=== PATIENT | female | born 1950 | race Caucasian/White ===

== ENCOUNTER → 2021-06-07 | Outpatient (CLI) | payer MEDICARE, OTHER ==
--- NOTE | 2021-06-07 13:11 | Diagnostic Imaging Report ---
PROCEDURE: US Hepatic (Liver). TECHNIQUE: Multiple real-time grayscale images were obtained over the right upper quadrant in various projections. INDICATION: History of cholecystectomy. Patient has history of pancreatic pseudocyst as well as right upper quadrant pain with diarrhea, bloating, and elevated liver enzymes. FINDINGS: Liver is upper limits of normal in size at 17.6 cm. There is some increased echogenicity throughout the liver suggestive of hepatic steatosis. No discrete liver mass is identified. The portal vein is patent and shows normal direction of flow. Gallbladder is surgically absent. No biliary ductal dilatation is seen. Pancreas is poorly visualized due to bowel gas. Aorta in the proximal and mid aspect was nonvisualized. Distal aorta is normal in caliber. IVC is patent. Right kidney is without calculi or hydronephrosis. There is no ascites. IMPRESSION: 1. Probable hepatic steatosis. 2. Status post cholecystectomy. 3. No acute feature detected. Dictated by: Dictated on workstation # [id number]
== END ==
LOC: RAD 09:45
PROVIDERS: ATTEND Nurse Practitioner Family
DX: R94.5 Abnormal results of liver function studies (principal)
CPT/HCPCS: 76705

== ENCOUNTER → 2021-08-01 | Outpatient (CLI) | payer MEDICARE, OTHER | LOC: CARD 08:32 | PROVIDERS: ATTEND Internal Medicine Cardiovascular Disease | DX: I11.9 Hypertensive heart disease without heart failure (principal); Z95.5 Presence of coronary angioplasty implant and graft | CPT/HCPCS: 93306 ==

== ENCOUNTER → 2021-08-02 | Outpatient (CLI) | payer MEDICARE, OTHER ==
[~2021-08-02] VITALS: Ht 160 cm; Wt 60.0 kg
[~2021-08-02] MED LIST: CATHETER FLUSH 10 ML SYR IV PRN
[2021-08-02 09:32] VITALS: BP 197/88
--- NOTE | 2021-08-02 11:53 | Cardiology Stress Test Report ---
Stress Test Report Date of Procedure/Referring: Date of Procedure: Aug 02, 2021 PCP Vilma Verde MD Admitting Physician Indications: HTN Baseline Heart Rate: 63 Baseline Blood Pressure: Blood Pressure Systolic: 197 Blood Pressure Diastolic: 88 Vital Signs Date Time Temp Pulse Resp B/P (MAP) Pulse Ox O2 Delivery O2 Flow Rate FiO2 08/02/21 09:32 52 197/88 (124) 98 Baseline Vital Signs Vital Signs Date Time Temp Pulse Resp B/P (MAP) Pulse Ox O2 Delivery O2 Flow Rate FiO2 08/02/21 09:32 52 197/88 (124) 98 Baseline EKG: Baseline EKG: NSR Summary: After explaining the procedure and details to the patient, she signed the consent and was brought to the stress nuclear laboratory. Patient exercised on standard Trey protocol, EKG, heart rate and blood pressure were monitored continuously, resting and stress doses of radio tracer were injected, imaging was acquired and reviewed in the short axis, horizontal long axis and vertical long axis views Patient was able to exercise for a total of 6.30 minutes on Trey protocol, METs 7.9 Maximum heart rate 140 Maximum blood pressure 203/85 Stress EKG, Minimal nondiagnostic changes Recovery EKG, Return to baseline TID: 1.15 SSS: 4 SDS: 4 EF: 52 Conclusion: 1. Fair exercise tolerance for a total of 6 minutes and 30 seconds on standard Trey protocol achieving 93% of maximal expected heart rate 2. Severe hypertensive response to exercise with peak blood pressure 203/85 return to baseline during recovery 3. Nondiagnostic EKG changes with exercise with [address] depression in lead II, III and aVF that persisted during recovery with biphasic T wave changes 4. Mild reversible ischemia involving the basal to mid inferior wall 5. Normal left ventricular size, EF 52% VILMA VERDE MD Aug 02, 2021 11:53
== END ==
LOC: CARD 08:45
PROVIDERS: ATTEND Internal Medicine Cardiovascular Disease
DX: I10 Essential (primary) hypertension (principal)
CPT/HCPCS: 78452; 93017; A9502

== ENCOUNTER 2021-09-06 09:00 | Day surgery (SDC) | payer MEDICARE, OTHER ==
[2021-09-06] VITALS (23 sets, daily range): BP systolic 142–211; BP diastolic 69–111
[~2021-09-06] VITALS: Ht 160 cm; Wt 62.0 kg
[2021-09-06 07:37] LABS: BILIRUBIN,URINE NEGATIVE (NEGATIVE); CLARITY,URINE CLEAR; COLOR,URINE YELLOW; GLUCOSE, URINE (UA) NEGATIVE (NEGATIVE); KETONES,URINE NEGATIVE (NEGATIVE); LEUKOCYTE ESTERASE ,URINE 2+ (NEGATIVE); NITRITE,URINE NEGATIVE (NEGATIVE); PROTEIN,URINE TRACE (NEGATIVE)
[2021-09-06 07:42] LABS: HEMATOCRIT 42 % (35-52); HEMOGLOBIN 13.8 g/dL (11.5-16.0); MEAN CORPUSCULAR HEMOGLOBIN 30 pg (25-34); MEAN CORPUSCULAR HGB CONC 33 g/dL (32-36); MEAN CORPUSCULAR VOLUME 91 fL (80-99); MEAN PLATELET VOLUME 10.5 fL (9.0-12.2); PLATELET COUNT 268 10^3/uL (130-400); WHITE BLOOD COUNT 7.9 10^3/uL (4.3-11.0)
--- NOTE | 2021-09-06 07:45 | Diagnostic Imaging Report ---
EXAMINATION: Chest 1 view HISTORY: ab n stress cad htn hlp COMPARISON: None available. FINDINGS: Heart size and pulmonary vasculature are normal. The lungs are clear without consolidation, pleural effusion, or pneumothorax. The osseous structures are intact. IMPRESSION: 1. No acute radiographic abnormality in the chest. Dictated by: Dictated on workstation # [id number]
[2021-09-06 07:46] LABS: BACTERIA,URINE MODERATE /HPF; RENAL EPITHELIAL CELLS,URINE 0-2 /HPF; WBC,URINE 25-50 /HPF
[2021-09-06 07:47] LABS: PROTHROMBIN TIME PATIENT 13.2 SEC (12.2-14.7)
[2021-09-06 07:53] LABS: ALBUMIN 3.7 GM/DL (3.2-4.5); BILIRUBIN,TOTAL 0.6 MG/DL (0.1-1.0); CALCIUM 9.1 MG/DL (8.5-10.1); CREATININE SERUM 0.68 MG/DL (0.60-1.30); POTASSIUM 3.5 MMOL/L (3.6-5.0); TOTAL PROTEIN 6.8 GM/DL (6.4-8.2)
[~2021-09-06 09:00] MED LIST changes: +AMLO-251 PO; +ASPI-1238 PO; +BUDE3CAP5 PO; -CATHETER FLUSH 10 ML SYR IV PRN; +CETI10TA49 PO; +CHOL-11 PO; +CIPR500T5 PO; +CLC600T PO; +DICY10CA12 PO; +DIPH25CA79 PO; +FLUT9.9S NS; +HEParin (CATH LAB) 2,000 ML IV ONE; +IBUP-2473 PO; +LEVO200T6 PO; +LEVO25TA5 PO; +LIDOCAINE 1% INJ 20 ML VIAL ONE; +LIPA1CAP4 PO; +LOPE2TAB34 PO; +LOSA50TA63 PO; +MAGN400T39 PO; +MULT-1029 PO; +NS IV 1000 ML 1,000 ML IV SCH; +NS IV 1000 ML 1,000 ML ONE; +OMEP20CA18 PO; +RT-ALBUINH IH; +TICA90TA PO
[2021-09-06] MEDS ORDERED: VERAPAMIL 5 MG/2 ML (CALAN) VIAL IV ONE (09:41)
[2021-09-06] MEDS ORDERED: MIDAZOLAM 5 MG/5 ML (VERSED) VIAL ONE (09:41)
[2021-09-06] MEDS ORDERED: fentaNYL INJ 100 MCG/2 ML AMP ONE (09:41)
[2021-09-06] MEDS ORDERED: HEParin 1000 UNIT/ML (10ML VIAL) FOR BOLUS ONE (09:42)
[2021-09-06] MEDS ORDERED: NITRO DRIP 25000 MCG/D5W 250 ML IV ONE (09:42)
[2021-09-06] MEDS ORDERED: meTOprolol 5 MG/5 ML (LOPRESSOR) VIAL ONE (10:03)
[2021-09-06] MEDS ORDERED: TICAGRELOR 90 MG TABLET (BRILINTA) PO ONE (10:27)
[2021-09-06] MEDS ORDERED: ASPIRIN 325 MG (5 GR) TABLET ONE (10:27)
[2021-09-06] MEDS ORDERED: PATIENT MAY USE OWN MEDS, ALL PO SCH (10:45)
[2021-09-06] MEDS ORDERED: RT-ALBUTEROL SULF 2.5 MG/3 ML PRE-MIX VIAL IH PRN (10:45)
--- NOTE | 2021-09-06 10:49 | Cardiac Cath Report ---
Cardiac Cath Report Physician (s)/Flower Cheniller (s) Physician VILMA SMITH MD Pre-Procedure Diagnosis Pre-Procedure Diagnosis: CAD Post-Procedure Note Procedure Start Date: Sep 06, 2021 Name of Procedure: Left heart catheterization PCI to the right coronary artery using Cutting Balloon Findings/Procedure Note PROCEDURE NOTE: 71-year-old lady with history of coronary artery disease multiple intervention in the past, had an abnormal stress test, scheduled for cardiac catheterization possible PTCA. After explaining the procedure to the patient, all pros and cons were explained, all questions were answered. The patient signed the consent and then she was placed on the cardiac catheterization laboratory. Groin was prepped SL fashion local anesthesia was used. Sheath placed in the right radial artery, Freedom catheter was advanced with difficulty to the aortic cusp, I was unable to and manipulate the catheter due to the tortuosity in the brachiocephalic and s ubclavian arteries. I removed the catheter and decided to proceed with a groin access. Sheath was placed in the right femoral artery. Gladys right and left catheter were used to access the coronary system. Gladys right was prolapsed to the left ventricular cavity, pressure was measured, pullback LV to aorta was done. Patient was given a total of 6000 units of heparin, FIR guide with sideholes was advanced to the right coronary artery, advanced a BMW wire, 3 x 20 balloon was used, multiple inflation, the ostium of the right coronary artery has severe in- stent restenosis and I was unable to maintain a good position of the balloon due to the watermelon seed effect. I repositioned the guide and advanced the wire again and then I used a [place] 3 x 10 cutting balloon did multiple inflation to the ostium of the right coronary artery for in-stent restenosis then proceeded with balloon dilatation using a trek 3.5 x 30 with multiple inflation in the proximal mid and distal right coronary artery with excellent results. At the end of the procedure the sheath was removed. Closure device was deployed FINDINGS: Hemodynamics LV 159/13, end-diastolic pressure of 13 Aorta 154/75 mean of 109 ANATOMY: Left Main is free of obstructive disease Left Anterior Descending has patent stent with mild to moderate disease nonobstructive disease Left Circumflex has mild to moderate disease nonobstructive disease Right Coronary Artery is large dominant artery with multiple stents extending from the ostium to the distal portion of the right coronary artery with severe multiple segment stenosis including subtotal occlusion of the ostium, complex intervention with multiple balloon angioplasty then using Cutting Balloon with [place] 3 x 10 postdilatation with 3.5 x 30 mm balloon with excellent results LV Gram was not done, pressure was measured CONCLUSION: 1. Severe multisegment stenosis in the ostium, proximal, mid and distal in- stent restenosis in the right coronary artery, complex intervention with Cutting Balloon using [place] 3 x 10 and then postdilatation with trek 3.5 x 30 mm balloon with multiple inflations with excellent results 2. Patent stents in the LAD with mild to moderate disease nonobstructive disease 3. Mild to moderate disease in the circumflex artery 4. Normal left ventricular end-diastolic pressure DISCUSSION AND RECOMMENDATION: Continue on aspirin and Brilinta and continue to maximize medical Anesthesia Type: Conscious Sedation Estimated blood loss (mL): 30 ml Contrast Amount: 70 ml Total Radiation Dose: 500 mGy Post-Procedure Diagnosis Post-operative diagnosis: Chest pain Coronary artery disease Hypertension Hyperlipidemia VILMA SMITH MD Sep 06, 2021 10:49
[2021-09-06] MEDS ORDERED: DICYCLOMINE 10 MG (BENTYL) CAP PO SCH (12:00)
--- NOTE | 2021-09-06 12:12 | Conscious Sedation/ASA ---
Conscious Sedation Pre-Proced Time 12:11 ASA Score 3 For ASA 3 and 4: Consider anesthesia and medical clearance. Also, for patients with a history of failed moderate sedation consider anesthesia. Airway Lungs Heart ASA score ASA 1: a normal healthy patient ASA 2: a patient with a mild systemic disease (mid diabetes, controlled hypertension, obesity x ASA 3: a patient with a severe systemic disease that limits activity (angina, COPD, prior Myocardial infarction) ASA 4: a patient with an incapacitating disease that is a constant threat to life (CHF, renal failure) ASA 5: a moribund patient not expected to survive 24 hrs. (ruptured aneurysm) ASA 6: a declared brain- patient whose organs are being harvested. For emergent operations, add the letter E after the classification Mallampati Classification Grade 3 Sedation Plan Analgesia, Amnesia, Plan communicated to team members, Discussed options with patient/fam, Discussed risks with patient/fam The patient is an appropriate candidate to undergo the planned procedure, sedation, and anesthesia. The patient immediately re-assessed prior to indication. VILMA SMITH MD Sep 06, 2021 12:12
[2021-09-06] MEDS: NS IV 1000 ML 1,000 ML IV SCH ×2 (12:47→21:49)
[2021-09-06] MEDS ORDERED: LOPERAMIDE 2 MG (IMODIUM) TABLET PO SCH (13:00)
[2021-09-06] MEDS ORDERED: ACETAMINOPHEN 325 MG TABLET PO PRN (14:00)
[2021-09-06] MEDS ORDERED: cloNIDine 0.1 MG (CATAPRES) TAB PO NR (15:00)
[2021-09-06] MEDS: DICYCLOMINE 10 MG (BENTYL) CAP PO SCH ×2 (17:35→20:10)
[2021-09-06] MEDS: TICAGRELOR 90 MG TABLET (BRILINTA) PO SCH (20:09)
[2021-09-06] MEDS: LOPERAMIDE 2 MG (IMODIUM) TABLET PO SCH (20:11)
[2021-09-06] MEDS ORDERED: LOSARTAN 50 MG (COZAAR) TAB PO SCH (21:00)
[2021-09-06] MEDS ORDERED: amLODIPine 10 MG (NORVASC) TAB ONE (22:37)
[2021-09-06] MEDS ORDERED: amLODIPine 10 MG (NORVASC) TAB PO ONE (22:45)
[2021-09-06] MEDS ORDERED: doxAzosin 4 MG (CARDURA) TAB PO PRN (22:45)
[2021-09-07] VITALS: BP 147/70
[2021-09-07 04:00] VITALS: BP 165/75
[2021-09-07 05:13] LABS: HEMATOCRIT 37 % (35-52); HEMOGLOBIN 12.3 g/dL (11.5-16.0); MEAN CORPUSCULAR HEMOGLOBIN 30 pg (25-34); MEAN CORPUSCULAR HGB CONC 34 g/dL (32-36); MEAN CORPUSCULAR VOLUME 89 fL (80-99); MEAN PLATELET VOLUME 10.7 fL (9.0-12.2); PLATELET COUNT 232 10^3/uL (130-400); WHITE BLOOD COUNT 6.9 10^3/uL (4.3-11.0)
--- NOTE | 2021-09-07 05:27 | Discharge Inst-Post CATH ---
Discharge Inst-CATH/EP Problems Reviewed?: Yes Post Cardiac Cath/EP D/C Inst Follow Up/Plan Appointment with Dr Verde in 2-4 weeks <b>CARDIAC CATH/EP PROCEDURE DISCHARGE INSTRUCTIONS</b> ACTIVITY * Go Home directly and rest. * Limit activity of the leg (or wrist if it was used) for 7 days including aerobics, swimming, jogging, bicycling, etc. * Restrict stair-climbing for 7 days if possible, if not, climb up with your non-cath leg, then bring together on the same step. * Avoid lifting, pushing, pulling or excessive movement of the affected extremity for 7 days. * Customary sexual activity may be resumed after 2 days-use caution not to use a position that strains or causes pain to the affected extremity. * No driving for 24 hours. * NO SMOKING. * Avoid straining for bowel movements for 7 days. * Gentle walking on level ground is allowed. * Returning to work will depend on the type of procedure and the results. Your doctor will discuss this with you. CALL YOUR DOCTOR FOR ANY OF THE FOLLOWING: *If bleeding from the puncture site occurs- Apply gentle pressure to site with clean cloth and call your doctor or EMS. * If a knot or lump forms under the skin, increases in size, or causes pain. * If bruising appears to be worsening or moving further down your leg instead of disappearing. * Temperature above 101 F. CARE OF YOUR GROIN INCISION; * Bruising or purple discoloration of the skin near the puncture site is common. * You may shower only, no bathtub bathing for 5 days. Be careful to avoid slipping as your leg may feel stiff. * If a closure device was used on your femoral artery, please see the attached guide regarding care of the device and your leg. * Leave dressing on FOR 24 hours. CARE OF YOUR WRIST INCISION; * Bruising or purple discoloration of the skin near the puncture site is common. * You may shower. * DO NOT submerge wrist. * Leave dressing on FOR 24 hours. VILMA VERDE MD Sep 07, 2021 05:27
[2021-09-07 05:30] LABS: POTASSIUM 3.4 MMOL/L (3.6-5.0)
[2021-09-07 05:31] LABS: CALCIUM 8.3 MG/DL (8.5-10.1)
[2021-09-07] MEDS: DICYCLOMINE 10 MG (BENTYL) CAP PO SCH (05:34)
[2021-09-07 05:35] LABS: CREATININE SERUM 0.61 MG/DL (0.60-1.30)
[2021-09-07] MEDS ORDERED: LEVOTHYROXINE 100 MCG (LEVOTHROID) TAB PO SCH (06:30)
[2021-09-07] MEDS ORDERED: LEVOTHYROXINE 25 MCG (LEVOTHROID) TAB PO SCH (06:30)
[2021-09-07] MEDS ORDERED: CARV3.12 PO (07:12)
[2021-09-07] MEDS ORDERED: LOSA100T57 PO (07:12)
--- NOTE | 2021-09-07 07:14 | Cardiology Progress Note ---
Subjective Date Seen by Provider: Sep 07, 2021 Time Seen by Provider: 07:10 Subjective/Events-last exam Patient is laying down in bed, feeling well. No new complaints. No chest pain was reported Review of Systems General: No Chills, No Night Sweats, No Fatigue, No Malaise, No Appetite, No Other HEENT: No Head Aches, No Visual Changes, No Eye Pain, No Ear Pain, No Dysphasia, No Sinus Congestion, No Post Nasal Drip, No Sore Throat, No Other Pulmonary: No Dyspnea, No Cough, No Pleuritic Chest Pain, No Other Cardiovascular: No: Chest Pain, Palpitations, Orthopnea, Paroxysmal Noc. Dyspnea, Edema, Lt Headedness, Other Objective-Cardiology Exam Last Set of Vital Signs Vital Signs 09/07/21 09/07/21 04:00 04:58 Temp 36.7 Pulse 66 Resp 16 B/P (MAP) 165/75 (105) Pulse Ox 93 O2 Delivery Room Air I&O Intake and Output 09/07/21 00:00 Intake Total 1200 ml Balance 1200 ml Intake Oral 200 ml IV Total 1000 ml # Voids 3 General: Alert, Oriented X3, Cooperative HEENT: Atraumatic, PERRLA Neck: Supple, No JVD, No Thyromegaly Lungs: Clear to Auscultation, Normal Air Movement Heart: Regular Rate, Normal S1, Normal S2, No Murmurs Abdomen: Normal Bowel Sounds, Soft, No Tenderness, No Hepatosplenomegaly, No Masses Extremities: No Clubbing, No Cyanosis, No Edema, Normal Pulses, No Tenderness/Swelling Skin: No Rashes, No Breakdown, No Significant Lesion Neuro: Normal Gait, Normal Speech, Strength at 5/5 X4 Ext, Normal Tone, Sensation Intact Psych/Mental Status: Mental Status NL, Mood NL Results Lab Laboratory Tests 09/06/21 07:26 09/07/21 04:55 A/P-Cardiology Admission Diagnosis Coronary artery disease Hypertension Hyperlipidemia Assessment/Plan Coronary artery disease, abnormal stress test, severe in-stent restenosis, complex intervention with Cutting Balloon then balloon angioplasty to the proximal mid and distal right coronary artery with excellent results. Cardiac cath findings: 1. Severe multisegment stenosis in the ostium, proximal, mid and distal in- stent restenosis in the right coronary artery, complex intervention with Cutting Balloon using [place] 3 x 10 and then postdilatation with trek 3.5 x 30 mm balloon with multiple inflations with excellent results 2. Patent stents in the LAD with mild to moderate disease nonobstructive disease 3. Mild to moderate disease in the circumflex artery 4. Normal left ventricular end-diastolic pressure Hypertension, poor control. I will increase losartan to 100 mg daily, add Coreg 3.125 mg twice daily and continue Norvasc 10 mg daily and monitor tolerance and response Hyperlipidemia, intolerant to statin, lipid profile is acceptable. Intolerance to Plavix VILMA SMITH MD Sep 07, 2021 07:14
[2021-09-07 08:00] VITALS: BP 159/85
[2021-09-07] MEDS: TICAGRELOR 90 MG TABLET (BRILINTA) PO SCH (08:35)
[2021-09-07] MEDS: LOPERAMIDE 2 MG (IMODIUM) TABLET PO SCH (08:37)
[2021-09-07] MEDS ORDERED: MAGNESIUM OXIDE (MAG-OX)400 MG TAB PO SCH (09:00)
[2021-09-07] MEDS ORDERED: ASPIRIN E.C. 81 MG (ECOTRIN) TAB PO SCH (09:00)
[2021-09-07] MEDS ORDERED: amLODIPine 10 MG (NORVASC) TAB PO SCH (09:00)
[2021-09-07] MEDS ORDERED: diphenhydrAMINE 25 MG TAB (BENADRYL) PO PRN (09:00)
[2021-09-07] MEDS ORDERED: BUDESONIDE ER 3 MG CAP (ENTOCORT) PO SCH (09:00)
[2021-09-07] MEDS ORDERED: FLUTICASONE NASAL SPRAY (FLONASE) 16 GM BTL NS PRN (09:00)
[2021-09-07] MEDS ORDERED: doxAzosin 2 MG (CARDURA) TAB PO SCH (09:00)
[2021-09-07] MEDS ORDERED: LORATADINE (CLARITIN) 10 MG TAB PO PRN (09:00)
[2021-09-07] MEDS ORDERED: PANTOPRAZOLE 20 MG TABLET (PROTONIX) PO SCH (09:00)
[2021-09-07] MEDS: NS IV 1000 ML 1,000 ML IV SCH (10:11)
[2021-09-07 10:36] VITALS: BP 159/85
== END 2021-09-07 10:40 | disposition home or self-care (01) ==
LOC: CATH 09:00 → CSD 11:03 → CATH 09-07 10:40
PROVIDERS: ATTEND Internal Medicine Cardiovascular Disease
DX: I25.10 Atherosclerotic heart disease of native coronary artery without angina pectoris (principal); I10 Essential (primary) hypertension; I65.23 Occlusion and stenosis of bilateral carotid arteries; E78.2 Mixed hyperlipidemia; E78.5 Hyperlipidemia, unspecified; E03.9 Hypothyroidism, unspecified; Z79.82 Long term (current) use of aspirin; Z79.899 Other long term (current) drug therapy; Z79.890 Hormone replacement therapy; Z90.710 Acquired absence of both cervix and uterus; Z83.3 Family history of diabetes mellitus
CPT/HCPCS: 71045; 80048; 80053; 80061; 81000; 85027 ×2; 85347; 85610; 85730; 87081; 87088; 92920; 93005; 93458; C1725 ×3; C1760; C1769; C1887; C1894 ×2; 36415

== ENCOUNTER → 2021-10-30 | Outpatient (CLI) | payer MEDICARE, OTHER ==
[~2021-10-30] MED LIST changes: +CARV3.12 PO; -HEParin (CATH LAB) 2,000 ML IV ONE; +HOLD METFORMIN - RECEIVED CONTRAST 20 ML VIAL IV SCH; +IOHEXOL 350 MG/ML 100 ML (OMNIPAQUE 350) VIAL IV ONE; -LIDOCAINE 1% INJ 20 ML VIAL ONE; +LOSA100T57 PO; +NS 100 ML (IVPB) BAG IV ONE; -NS IV 1000 ML 1,000 ML IV SCH; -NS IV 1000 ML 1,000 ML ONE
--- NOTE | 2021-10-30 11:34 | Diagnostic Imaging Report ---
PROCEDURE: CT abdomen with contrast only. TECHNIQUE: Multiple contiguous axial images were obtained through the abdomen after the administration of intravenous contrast. Auto Exposure Controls were utilized during the CT exam to meet ALARA standards for radiation dose reduction. INDICATION: Elevated liver enzymes. No prior studies are available for comparison. The lung bases are clear. The liver does show generalized low density consistent with hepatic steatosis. No discrete liver mass is detected. Gallbladder surgically absent. No biliary ductal dilatation is seen. Pancreas and spleen are unremarkable. No adrenal mass is identified. Kidneys are unremarkable. Aorta is nonaneurysmal. There is moderate stool in the colon. There appears to be dilated and fluid-filled small bowel loops in the upper abdomen and mid abdomen, nonspecific. No free fluid is seen. IMPRESSION: 1. Hepatic steatosis. No discrete liver mass or biliary ductal dilatation is seen. 2. Moderate stool suggesting constipation. 3. Dilated fluid-filled small bowel loops upper abdomen. Dictated by: Dictated on workstation # [id number]
== END ==
LOC: RAD 10:23
PROVIDERS: ATTEND Internal Medicine
DX: Z12.31 Encounter for screening mammogram for malignant neoplasm of breast (principal); R79.89 Other specified abnormal findings of blood chemistry
CPT/HCPCS: 74160; 77063; 77067

== ENCOUNTER → 2022-11-05 | Outpatient (CLI) | payer MEDICARE, OTHER ==
[~2022-11-05] MED LIST changes: +ALBU8.5H6 IH; -HOLD METFORMIN - RECEIVED CONTRAST 20 ML VIAL IV SCH; -IOHEXOL 350 MG/ML 100 ML (OMNIPAQUE 350) VIAL IV ONE; -NS 100 ML (IVPB) BAG IV ONE; -RT-ALBUINH IH
--- NOTE | 2022-11-05 14:00 | Diagnostic Imaging Report ---
INDICATION: Routine screening. COMPARISON: 10/30/2021. TECHNIQUE: 2D and 3D bilateral screening mammography was performed with CAD. FINDINGS: Both breasts are heterogeneously dense, limiting the sensitivity of mammography. The overall parenchymal pattern is stable. No mass or malignant-appearing microcalcifications are seen. There are vascular calcifications bilaterally. The axillae are unremarkable. IMPRESSION: No mammographic features suspicious for malignancy are identified. ACR BI-RADS Category 1: Negative. Result letter will be mailed to the patient. Note: At least 10% of breast cancer is not imaged by mammography. Dictated by: Dictated on workstation # [id number]
== END ==
LOC: RAD 10:44
PROVIDERS: ATTEND Nurse Practitioner Family
DX: Z12.31 Encounter for screening mammogram for malignant neoplasm of breast (principal)
CPT/HCPCS: 77063; 77067

== ENCOUNTER 2023-07-17 16:09 | Inpatient (IN) | payer MEDICARE, OTHER ==
[~2023-07-17] VITALS: Ht 163 cm; Wt 60.2 kg
[~2023-07-17 16:09] MED LIST changes: +DICY-11 PO; -DICY10CA12 PO; -LOSA100T57 PO; +LOSA100T58 PO
[2023-07-17 16:57] LABS: BASOPHILS % (AUTO) 0 % (0-10); EOSINOPHILS # (AUTO) 0.1 10^3/uL (0.0-0.3); EOSINOPHILS % (AUTO) 1 % (0-10); HEMATOCRIT 40 % (35-52); HEMOGLOBIN 13.9 g/dL (11.5-16.0); LYMPHOCYTES # (AUTO) 3.2 10^3/uL (1.0-4.0); LYMPHOCYTES % (AUTO) 41 % (12-44); MEAN CORPUSCULAR HEMOGLOBIN 30 pg (25-34); MEAN CORPUSCULAR HGB CONC 35 g/dL (32-36); MEAN CORPUSCULAR VOLUME 87 fL (80-99); MEAN PLATELET VOLUME 9.7 fL (9.0-12.2); MONOCYTES # (AUTO) 0.8 10^3/uL (0.0-1.0); MONOCYTES % (AUTO) 10 % (0-12); NEUTROPHILS # (AUTO) 3.7 10^3/uL (1.8-7.8); NEUTROPHILS % (AUTO) 47 % (42-75); PLATELET COUNT 275 10^3/uL (130-400); WHITE BLOOD COUNT 7.8 10^3/uL (4.3-11.0)
[2023-07-17] MEDS ORDERED: NS IV 1000 ML 1,000 ML IV ONE (17:00)
[2023-07-17 17:03] LABS: POTASSIUM 4.3 MMOL/L (3.6-5.0)
[2023-07-17 17:04] LABS: CALCIUM 8.6 MG/DL (8.5-10.1)
[2023-07-17 17:05] LABS: TOTAL PROTEIN 6.6 GM/DL (6.4-8.2)
[2023-07-17 17:07] LABS: BILIRUBIN,TOTAL 0.6 MG/DL (0.1-1.0)
--- NOTE | 2023-07-17 17:08 | ED General ---
General Chief Complaint: General Problems/Pain Stated Complaint: ABNORMAL LABS Nursing Triage Note: PT SENT HERE BY DR CARPENTER WITH LOW SODIUM OF 115, DRAWN AT 0930 THIS MORNING Source of Information: Patient Exam Limitations: No Limitations (FRANCY CASTILLO APRN) History of Present Illness Date Seen by Provider: Jul 17, 2023 Time Seen by Provider: 16:34 Initial Comments 73-year-old female presents to the ER with reports of low sodium of 115 and low chloride of 81. She reports that today she had routine labs drawn and was told to come to the ER due to the low sodium. She states that yesterday she had some confusion. States that she had been feeling weak and tired so she wanted to do home COVID test. States that she could not figure out how to do the test. Her daughter did the test for her and it was negative. She is alert and oriented x 4 at this time. She states that she has had low sodium in the past, they thought it was related to an antidepressant that she was taking. She states that she has not had problems for the past 4 years since stopping that medication. She reports some dizziness. Patient was found to be hypertensive. Denies headache and blurry vision. She does have a history of hypertension, reports compliance with her medications today. Denies fever, cough, chest pain, shortness of air, abdominal pain, nausea, vomiting, diarrhea. (FRANCY CASTILLO APRN) Allergies and Home Medications Allergies Coded Allergies: clopidogrel (Verified Allergy, Severe, 09/06/21) DID NOT WORK, STENT SHUT DOWN nefazodone (Verified Allergy, Intermediate, 09/06/21) LOWERS SODIUM LEVEL trazodone (Verified Allergy, Intermediate, 09/06/21) LOWERS SODIUM codeine (Unverified Allergy, Unknown, 08/02/21) erythromycin base (Unverified Allergy, Unknown, 08/02/21) lisinopril (Unverified Allergy, Unknown, 08/02/21) Patient Home Medication List Home Medication List Reviewed: Yes (FRANCY CASTILLO APRN) Albuterol Sulfate (Ventolin Hfa) 1 Puff Puff, 2 PUFF IH Q4H PRN for SHORTNESS OF BREATH, (Reported) Entered as Reported by: DEVI SANABRIA on 09/06/21 0864 Last Action: Reviewed Amitriptyline HCl (Amitriptyline HCl) 10 Mg Tablet, 10 MG PO HS, (Reported) Entered as Reported by: BEBETO STOVALL on 07/17/232116 Last Action: New Order Amlodipine Besylate (Amlodipine Besylate) 10 Mg Tablet, 10 MG PO DAILY, (Reported) Entered as Reported by: DEVI SANABRIA on 09/06/21846 Last Action: Reviewed Aspirin (Aspirin EC) 81 Mg Tablet.dr, 81 MG PO DAILY, (Reported) Entered as Reported by: DEVI SANABRIA on 09/06/21846 Last Action: Edited Budesonide (Budesonide EC) 3 Mg Capdr...er, 9 MG PO DAILY PRN for SHORTNESS OF BREATH, (Reported) Entered as Reported by: DEVI SANABRIA on 09/06/21846 Last Action: Edited Calcium Carbonate (Calcium Carbonate) 600 Mg Tablet, 600 MG PO BID, (Reported) Entered as Reported by: DEVI SANABRIA on 09/06/21846 Last Action: Reviewed Carvedilol (Carvedilol) 6.25 Mg Tablet, 6.25 MG PO BID, (Reported) Entered as Reported by: BEBETO STOVALL on 07/17/232116 Last Action: New Order Cetirizine HCl (Zyrtec) 10 Mg Tablet, 10 MG PO DAILY PRN for ALLERGIES, (Reported) Entered as Reported by: DEVI SANABRIA on 09/06/21850 Last Action: Reviewed Colestipol HCl (Colestid) 1 Gram Tab, 1 GM PO BID, (Reported) Entered as Reported by: BEBETO STOVALL on 07/17/232116 Last Action: New Order Colestipol HCl (Colestid) 1 Gram Tab, 1 GM PO BID, (Reported) Entered as Reported by: BEBETO STOVALL on 07/17/232116 Last Action: New Order Dicyclomine HCl (Dicyclomine HCl) 10 Mg Capsule, 10 MG PO QIDACHS, (Reported) Entered as Reported by: DEVI SANABRIA on 09/06/21846 Last Action: Reviewed Diphenhydramine HCl (Benadryl) 25 Mg Capsule, 25 MG PO DAILY PRN for ALLERGIES, (Reported) Entered as Reported by: DEVI SANABRIA on 09/06/21850 Last Action: Reviewed Fluticasone Propionate (Flonase Allergy Relief) 9.9 Ml [place].susp, 2 SPRAY NS DAILY PRN for CONGESTION, (Reported) Entered as Reported by: DEVI SANABRIA on 09/06/21846 Last Action: Reviewed Hydralazine HCl (Hydralazine HCl) 25 Mg Tablet, 25 MG PO TID, (Reported) Entered as Reported by: BEBETO STOVALL on 07/17/232116 Last Action: New Order Ibuprofen (Ibuprofen) 200 Mg Tablet, 600 MG PO Q6H PRN for PAIN-MILD (1-4), (Reported) Entered as Reported by: DEVI SANABRIA on 09/06/21850 Last Action: Reviewed Levothyroxine Sodium (Levothyroxine Sodium) 25 Mcg Tablet, 25 MCG PO DAILY, (Reported) Entered as Reported by: DEVI SANABRIA on 09/06/21846 Last Action: Reviewed Levothyroxine Sodium (Levothyroxine Sodium) 200 Mcg Tablet, 200 MCG PO DAILY, (Reported) Entered as Reported by: DEVI SANABRIA on 09/06/21846 Last Action: Reviewed Lipase/Protease/Amylase (Dina Berrios 24,000 Units Capsule) 1 Each Capsule.dr, 3 EACH PO TIDWM, (Reported) Entered as Reported by: DEVI SANABRIA on 09/06/21846 Last Action: Reviewed Loperamide HCl (Loperamide) 2 Mg Tablet, 6 MG PO TID, (Reported) Entered as Reported by: DEVI SANABRIA on 09/06/21846 Last Action: Reviewed Losartan Potassium (Losartan Potassium) 100 Mg Tablet, 100 MG PO DAILY Prescribed by: VILMA SMITH on 09/07/21711 Last Action: Reviewed Magnesium Oxide (Magnesium) 400 Mg Tablet, 400 MG PO DAILY, (Reported) Entered as Reported by: DEVI SANABRIA on 09/06/21846 Last Action: Reviewed Multivit-Min/FA/Lycopene/Lut (Centrum Silver Tablet) 1 Each Tablet, 1 EACH PO 1200, (Reported) Entered as Reported by: DEVI SANABRIA on 09/06/21846 Last Action: Reviewed Nitroglycerin (Nitroglycerin) 0.4 Mg Tab.subl, 0.4 MG SL for CHEST PAIN, (Reported) Entered as Reported by: BEBETO STOVALL on 07/17/232116 Last Action: New Order Omeprazole (Omeprazole) 20 Mg Capsule.dr, 20 MG PO DAILY, (Reported) Entered as Reported by: DEVI SANABRIA on 09/06/21846 Last Action: Reviewed Simethicone (Phazyme) 180 Mg Capsule, 180 MG PO BIDPC, (Reported) Entered as Reported by: BEBETO STOVALL on 07/17/23 2100 Last Action: New Order [Hc Pramoxine 2.5] , 1 % TP BID, (Reported) Entered as Reported by: BEBETO STOVALL on 07/17/232129 Last Action: New Order [Vitamin D] , 5,000 PO DAILY, (Reported) Entered as Reported by: BEBETO STOVALL on 07/17/232116 Last Action: New Order Discontinued Medications Carvedilol (Coreg) 3.125 Mg Tablet, 3.125 MG PO BID Discontinued Reason: No Longer Taking Prescribed by: VILMA SMITH on 09/07/21711 Last Action: Discontinued Cholecalciferol (Vitamin D3) (Vitamin D3) 250 Mcg Tablet, 250 MCG PO DAILY, (Reported) Discontinued Reason: No Longer Taking Entered as Reported by: DEVI SANABRIA on 09/06/21850 Last Action: Discontinued Ciprofloxacin HCl (Ciprofloxacin HCl) 500 Mg Tablet, 500 MG PO BID, (Reported) Discontinued Reason: No Longer Taking Entered as Reported by: DEVI SANABRIA on 09/06/21846 Last Action: Discontinued Ticagrelor (Brilinta) 90 Mg Tablet, 90 MG PO BID, (Reported) Discontinued Reason: No Longer Taking Entered as Reported by: DEVI SANABRIA on 09/06/21846 Last Action: Discontinued Review of Systems Review of Systems Constitutional: see HPI (FRANCY CASTILLO APRN) Past Hjkuvix-Rpwwwp-Hkcvwn Hx Patient Social History Tobacco Use?: No Substance use?: No Alcohol Use?: No (FRANCY CASTILLO APRN) Past Medical History Surgery/Hospitalization HX: HTN, CAD WITH 4 STENTS, LOW SODIUM Abdominal, Coronary Stent, Gallbladder, Hysterectomy Coronary Artery Disease, Hypertension Colitis, Polyps (FRANCY CASTILLO APRN) Physical Exam Vital Signs Vital Signs - First Documented 07/17/23 16:24 Temp 36.6 Pulse 61 Resp 18 B/P (MAP) 198/81 (120) Pulse Ox 98 O2 Delivery Room Air (LALITA HOYT MD) Vital Signs Capillary Refill : Less Than 3 Seconds (FRANCY CASTILLO APRN) Height, Weight, BMI Height: '" Weight: lbs. oz. kg; 23.00 BMI Method: General Appearance: No Apparent Distress, WD/WN HEENT: PERRL/EOMI, TMs Normal, Normal ENT Inspection Neck: Full Range of Motion, Normal Inspection, Supple Respiratory: Lungs Clear, Normal Breath Sounds, No Accessory Muscle Use, No Respiratory Distress Cardiovascular: Regular Rate, Rhythm Extremity: Normal Inspection, Normal Range of Motion Neurologic/Psychiatric: Alert, Oriented x3, No Motor/Sensory Deficits, Normal Mood/Affect, electrolytic de scaler II-XII Norm as Tested Skin: Normal Color, Warm/Dry (FRANCY CASTILLO APRN) Progress/Results/Core Measures Suspected Sepsis SIRS Temperature: Pulse: 61 Respiratory Rate: 18 Laboratory Tests 07/17/23 16:34: White Blood Count 7.8 Blood Pressure 198 /81 Mean: 120 Laboratory Tests 07/17/23 16:34: Creatinine 0.65, Platelet Count 275, Total Bilirubin 0.6 (FRANCY CASTILLO APRN) Results/Orders Lab Results Laboratory Tests Test 07/17/23 16:34 07/17/23 16:55 Range/Units White Blood Count 7.8 4.3-11.0 10^3/uL Red Blood Count 4.58 3.80-5.11 10^6/uL Hemoglobin 13.9 11.5-16.0 g/dL Hematocrit 40 35-52 % Mean Corpuscular Volume 87 80-99 fL Mean Corpuscular Hemoglobin 30 25-34 pg Mean Corpuscular Hemoglobin Concent 35 32-36 g/dL Red Cell Distribution Width 12.7 10.0-14.5 % Platelet Count 275 130-400 10^3/uL Mean Platelet Volume 9.7 9.0-12.2 fL Immature Granulocyte % (Auto) 1 % Neutrophils (%) (Auto) 47 42-75 % Lymphocytes (%) (Auto) 41 12-44 % Monocytes (%) (Auto) 10 0-12 % Eosinophils (%) (Auto) 1 0-10 % Basophils (%) (Auto) 0 0-10 % Neutrophils # (Auto) 3.7 1.8-7.8 10^3/uL Lymphocytes # (Auto) 3.2 1.0-4.0 10^3/uL Monocytes # (Auto) 0.8 0.0-1.0 10^3/uL Eosinophils # (Auto) 0.1 0.0-0.3 10^3/uL Basophils # (Auto) 0.0 0.0-0.1 10^3/uL Immature Granulocyte # (Auto) 0.1 0.0-0.1 10^3/uL Sodium Level 116 *L 135-145 MMOL/L Potassium Level 4.3 3.6-5.0 MMOL/L Chloride Level 83 L 98-107 MMOL/L Carbon Dioxide Level 26 21-32 MMOL/L Anion Gap 7 5-14 MMOL/L Blood Urea Nitrogen 10 7-18 MG/DL Creatinine 0.65 0.60-1.30 MG/DL Estimat Glomerular Filtration Rate 93 BUN/Creatinine Ratio 15 Glucose Level 84 70-105 MG/DL Calcium Level 8.6 8.5-10.1 MG/DL Corrected Calcium 8.6 8.5-10.1 MG/DL Total Bilirubin 0.6 0.1-1.0 MG/DL Aspartate Amino Transf (AST/SGOT) 32 5-34 U/L Alanine Aminotransferase (ALT/SGPT) 48 0-55 U/L Alkaline Phosphatase 174 H 40-136 U/L Total Protein 6.6 6.4-8.2 GM/DL Albumin 4.0 3.2-4.5 GM/DL Urine Color YELLOW Urine Clarity CLEAR Urine pH 5.5 5-9 Urine Specific [place] 1.010 L 1.016-1.022 Urine Protein TRACE H NEGATIVE Urine Glucose (UA) NEGATIVE NEGATIVE Urine Ketones NEGATIVE NEGATIVE Urine Nitrite NEGATIVE NEGATIVE Urine Bilirubin NEGATIVE NEGATIVE Urine Urobilinogen 0.2 < = 1.0 MG/DL Urine Leukocyte Esterase TRACE H NEGATIVE Urine RBC (Auto) NEGATIVE NEGATIVE Urine RBC NONE /HPF Urine WBC RARE /HPF Urine Squamous Epithelial Cells 0-2 /HPF Urine Crystals NONE /LPF Urine Bacteria MODERATE H /HPF Urine Casts NONE /LPF Urine Mucus NEGATIVE /LPF Urine Culture Indicated YES (LALITA HOYT MD) Vital Signs/I&O 07/17/23 07/17/23 07/17/23 16:24 18:50 18:51 Temp 36.6 36.8 Pulse 61 62 65 Resp 18 18 18 B/P (MAP) 198/81 (120) 185/78 199/80 (119) Pulse Ox 98 96 94 O2 Delivery Room Air Room Air Room Air (LALITA HOYT MD) Vital Signs/I&O Capillary Refill : Less Than 3 Seconds (FRANCY CASTILLO APRN) Blood Pressure Mean: 120 Progress Note : Progress Note Patient seen and evaluated, resting comfortably in bed, no acute distress. Patient is not confused at this time. Based on exam and symptoms, will repeat her blood work including CBC and CMP. Will also obtain a chest x-ray and urinalysis. 1742 labs and imaging reviewed. CBC grossly normal. CMP shows critically low sodium 116, decreased chloride 83. Alkaline phosphatase elevated 174. Urinalysis shows urine specific gravity 1.010, trace protein, trace leukocytes, moderate bacteria, negative for nitrates, rare WBCs. Chest x-ray shows no acute abnormalities. I called and spoke with Dr. Espinoza, hospitalist, regarding admission. He agrees to admit patient. He would like patient to go to the ICU as an inpatient. He will place admission orders. 1899 I called and gave report to the eICU physician. She would like me to add a serum osmolality and urine osmolality. These have been ordered. Patient should be on the unit shortly. (FRANCY CASTILLO APRN) Diagnostic Imaging Diagonstic Imaging: Xray Plain Films/CT/US/NM/MRI: chest Comments [facility] [place], [place] NAME: TA TRUJILLO [facility] REC#: [id number] PT STATUS: REG ER : 1950 PHYSICIAN: FRANCY CASTILLO APRN ADMIT DATE: 07/17/23/ER Signed Date of Exam:07/17/23 CHEST 1 VIEW, AP/PA ONLY Indication: Hyponatremia Portable chest 4:54 PM Heart size and pulmonary vascularity are normal. Lungs are clear. There are no effusions or pneumothoraces. IMPRESSION: Negative chest Dictated by: Dictated on workstation # [id number] Dict: 07/17/231709 Trans: 07/17/231710 [facility] [id number] Interpreted by: JULIETH SILVERIO MD Electronically signed by: JULIETH SILVERIO MD 07/17/231710 (FRANCY CASTILLO APRN) Departure Communication (Admissions) Time/Spoke to Admitting Phy: 17:43 Dr. Espinoza, hospitalist, see progress note. (FRANCY CASTILLO APRN) Impression Primary Impression: Hyponatremia Disposition: ADMITTED INPATIENT Condition: Stable Admissions Decision to Admit Reason: Admit from ER (General) Decision to Admit/Date: Jul 17, 2023 Time/Decision to Admit Time: 17:43 (FRANCY CASTILLO APRN) Departure-Patient Inst. Referrals: DILLAN CARPENTER MD (PCP/Family) Primary Care Physician ATTENDING PHYSICIAN NOTE: I was physically present as attending physician in the emergency department during the care of this patient. I briefly reviewed clinical history, exam fin dings, and labs with Francy Castillo, DANK. Admission was recommended. I did not personally interview or examine this patient. I was not otherwise directly involved in the decision making or delivery of care for this patient. (LALITA HOYT MD) Copy Copies To 1: DILLAN CARPENTER MD, BRITTANY R APRN Jul 17, 2023 17:08 LALITA HOYT MD Jul 18, 2023 06:13
[2023-07-17 17:09] LABS: CREATININE SERUM 0.65 MG/DL (0.60-1.30)
--- NOTE | 2023-07-17 17:12 | Diagnostic Imaging Report ---
Indication: Hyponatremia Portable chest 4:54 PM Heart size and pulmonary vascularity are normal. Lungs are clear. There are no effusions or pneumothoraces. IMPRESSION: Negative chest Dictated by: Dictated on workstation # [id number]
[2023-07-17 17:29] LABS: CLARITY,URINE CLEAR; COLOR,URINE YELLOW; PH,URINE 5.5 (5-9)
[2023-07-17 17:30] LABS: BACTERIA,URINE MODERATE /HPF; BILIRUBIN,URINE NEGATIVE (NEGATIVE); GLUCOSE, URINE (UA) NEGATIVE (NEGATIVE); KETONES,URINE NEGATIVE (NEGATIVE); LEUKOCYTE ESTERASE ,URINE TRACE (NEGATIVE); NITRITE,URINE NEGATIVE (NEGATIVE); PROTEIN,URINE TRACE (NEGATIVE); SQUAMOUS EPITHELIAL CELL,UR 0-2 /HPF; WBC,URINE RARE /HPF
[2023-07-17] MEDS ORDERED: MELATONIN 3 MG TABLET PO PRN (19:00)
[2023-07-17] MEDS ORDERED: MILK OF MAGNESIA 400 MG/5 ML 30 ML UDC PO PRN (19:00)
[2023-07-17] MEDS ORDERED: CALCIUM CARBONATE 500 MG CHEW TABLET PO PRN (19:00)
[2023-07-17] MEDS ORDERED: BISACODYL 10 MG SUPPOSITORY PR PRN (19:00)
[2023-07-17] MEDS ORDERED: LACTULOSE SYRUP 10GM/15ML 30ML UDC PO PRN (19:00)
[2023-07-17] MEDS ORDERED: ONDANSETRON INJECTION 4 MG/2 ML (SDV) IV PRN (19:00)
[2023-07-17] MEDS ORDERED: ANTACID SUSPENSION 30 ML UDC PO PRN (19:00)
[2023-07-17] MEDS ORDERED: ONDANSETRON 4 MG ORAL DISSOLVE TABLET PO PRN (19:00)
[2023-07-17] MEDS ORDERED: ACETAMINOPHEN 325 MG TABLET PO PRN (19:00)
[2023-07-17] MEDS: NS IV 1000 ML 1,000 ML IV SCH ×2 (19:51→21:59)
[2023-07-17] MEDS: ENOXAPARIN 40 MG/0.4 ML SYRINGE SC SCH (20:17)
[2023-07-17] MEDS: DOCUSATE SODIUM 100 MG CAPSULE PO SCH (21:00)
[2023-07-17] MEDS: SENNOSIDES 8.6 MG TABLET PO SCH (21:00)
[2023-07-17] MEDS ORDERED: SIME180C68 PO (21:00)
[2023-07-17] MEDS ORDERED: HYDR-3923 PO (21:17)
[2023-07-17] MEDS ORDERED: VITAMIN D PO (21:17)
[2023-07-17] MEDS ORDERED: NITR0.4T42 SL (21:17)
[2023-07-17] MEDS ORDERED: NF-COLE1GM PO (21:17)
[2023-07-17] MEDS ORDERED: CARV6.252 PO (21:17)
[2023-07-17] MEDS ORDERED: AMT10T PO (21:17)
[2023-07-17] MEDS ORDERED: [UNRECOGNIZED DRUG - OTHER] TP (21:30)
[2023-07-17] MEDS: hydrALAZINE INJECTION 20 MG/ML VIAL IV PRN (23:01)
[2023-07-17] MEDS ORDERED: NS IV 500 ML 500 ML IV PRN (23:15)
--- NOTE | 2023-07-17 23:35 | Tele-ICU Progress Note ---
Progress Note Tele ICU Brief progress note 73 yo woman sent into ED by PMD for abnormal labs- hyponatremia. Reports feeling weak and tired, Daughter did a COVID test on her which was negative yesterday, but had orders for routine bood work so went to have them drawn PMHx: reported- HTN, hypothyroidism, coronary artery disease s/p stents, colitis, polyps Initial Na in ED 116, repeat after 1 liter NS over 4 hours was 118 K 4.3 Cl 83 Bicarb 26 BUN 10 Cr 0.65 LFTs nl except alk phos 174 Serum and urine osm are pending CBC wbcs 7800 Hgb 13.8 Plts 275,000 UA ap gravity 1.010 Per video: BP 186/81 sats 97% HR 61 sinus Nursing reports that pt is alert and oriented. A/P 1) Hyponatremia- At this time will keep pt on NS which has been written and NPO until AM labs- no free water. 2) HTN Will use hydralazine for BP control. I will also order in house COVID testing. D/W nursing Focused Exam Height, Weight, BMI Height: '" Weight: lbs. oz. kg; 23.71 BMI Method: ORION HORVATH DO Jul 17, 2023 23:35
[2023-07-18 03:59] LABS: BASOPHILS # (AUTO) 0.1 10^3/uL (0.0-0.1); BASOPHILS % (AUTO) 1 % (0-10); EOSINOPHILS % (AUTO) 1 % (0-10); HEMATOCRIT 36 % (35-52); HEMOGLOBIN 12.9 g/dL (11.5-16.0); LYMPHOCYTES # (AUTO) 2.5 10^3/uL (1.0-4.0); LYMPHOCYTES % (AUTO) 41 % (12-44); MEAN CORPUSCULAR HEMOGLOBIN 30 pg (25-34); MEAN CORPUSCULAR HGB CONC 36 g/dL (32-36); MEAN CORPUSCULAR VOLUME 84 fL (80-99); MEAN PLATELET VOLUME 10.1 fL (9.0-12.2); MONOCYTES # (AUTO) 0.6 10^3/uL (0.0-1.0); MONOCYTES % (AUTO) 10 % (0-12); NEUTROPHILS # (AUTO) 2.9 10^3/uL (1.8-7.8); NEUTROPHILS % (AUTO) 47 % (42-75); PLATELET COUNT 232 10^3/uL (130-400); WHITE BLOOD COUNT 6.2 10^3/uL (4.3-11.0)
[2023-07-18 04:40] LABS: CALCIUM 8.4 MG/DL (8.5-10.1); CREATININE SERUM 0.59 MG/DL (0.60-1.30); POTASSIUM 4.2 MMOL/L (3.6-5.0)
[2023-07-18] MEDS: POTASSIUM CL 10MEQ/50ML IVPB 50 ML IV SCH (04:57)
[2023-07-18] MEDS: POTASSIUM CHLORIDE 20 MEQ TABLET PO SCH (04:58)
[2023-07-18] MEDS: MAGNESIUM 1 GM/100 ML IVPB 100 ML IV SCH ×7 (05:13→10:36)
[2023-07-18] MEDS ORDERED: FLU HIGH DOSE (65+ YOA) 240 MCG/0.7 ML 2023-24 (FLUZONE) IM ONE (08:00)
[2023-07-18] MEDS: DOCUSATE SODIUM 100 MG CAPSULE PO SCH ×2 (08:17→21:36)
[2023-07-18] MEDS: SENNOSIDES 8.6 MG TABLET PO SCH ×2 (08:17→21:36)
--- NOTE | 2023-07-18 09:09 | Tele-ICU Progress Note ---
Subjective Date Seen by a Provider: Jul 18, 2023 Time Seen by a Provider: 09:08 Subjective/Events-last exam (Tele-ICU Physician , Progress Note ) Service provided via interactive audio and video telecommunications E-CARE system to a patient admitted to ICU bed in [facility]. Patient is seen today due to persistent need of ICU care Available chart/ vitals / labs / Images reviewed Video assessment done using teleICU camera, rest of exam as per RN Discussed with RN Events overnight : Afebrile hemodynamically stable Respiratory - I/O = Drips: Pressors- no Hospital course: A/P Hyponatremia- -2L NS 116-->125 -stop IVF follow Na ( reach goal fot today if NA rising ) - repeat at noon HTN - controlled on prn Lines : periph , (Central Line Necessity Reviewed) Pagan: OG: Nutrition:po Analgesia: Anxiety/ delirium VTE Prophylaxis: veronica Stress Ulcer Prophylaxis: na Plans in collaboration with bedside consultants and IM MDs. Discussed with RN to reach out if any questions or concerns Case and care daily discussed on multidisciplinary rounds ( RN, PharmD, Client Administrator , Respiratory Therapy, poultry farm worker ) A total of 22 minutes of critical care time was devoted to this patient today, required to treat and/or prevent further deterioration of critical care condition ( as above ) . Sepsis Event Evaluation Height, Weight, BMI Height: '" Weight: lbs. oz. kg; 24.08 BMI Method: Exam Exam Patient acknowledged, consented, and participated in this virtual visit which was conducted using real time audio/video Vital Signs Date Time Temp Pulse Resp B/P (MAP) Pulse Ox O2 Delivery O2 Flow Rate FiO2 07/18/23 09:00 62 24 159/76 (98) 94 Room Air 07/18/23 08:00 36.8 07/18/23 08:00 66 157/78 (111) 97 Room Air 07/18/23 07:00 56 07/18/23 07:00 56 35 172/84 (115) 96 Room Air 07/18/23 06:00 60 12 144/61 (88) 96 Room Air 07/18/23 05:00 60 36 149/62 (91) 96 Room Air 07/18/23 04:00 58 32 140/64 (89) 95 Room Air 07/18/23 03:00 60 16 146/70 (95) 96 Room Air 07/18/23 02:00 65 16 150/63 (92) 95 Room Air 07/18/23 01:00 63 18 141/67 (91) 94 Room Air 07/18/23 00:00 63 30 190/77 (114) 97 Room Air 07/18/23 00:00 66 07/18/23 00:00 36.5 07/17/23 23:00 59 12 186/77 (113) 96 Room Air 07/17/23 22:00 61 15 186/81 (116) 98 Room Air 07/17/23 21:00 56 16 190/73 (112) 99 Room Air 07/17/23 20:00 59 178/82 (114) 98 Room Air 07/17/23 20:00 59 98 Room Air 07/17/23 19:45 63 46 175/76 (109) 97 Room Air 07/17/23 19:15 63 18 183/74 (96) 99 Room Air 07/17/23 19:11 60 07/17/23 19:00 68 16 202/78 (130) 97 Room Air 07/17/23 19:00 98 Room Air 07/17/23 18:51 65 18 199/80 (119) 94 Room Air 07/17/23 18:50 36.8 62 18 185/78 96 Room Air 07/17/23 16:24 36.6 61 18 198/81 (120) 98 Room Air I & O 07/18/23 07:00 Intake Total 2200 ml Output Total 1200 ml Balance 1000 ml Height & Weight Height: '" Weight: lbs. oz. kg; 24.08 BMI Method: General Appearance: No Apparent Distress, WD/WN HEENT: PERRL/EOMI, TMs Normal, Normal ENT Inspection Neck: Full Range of Motion, Normal Inspection, Supple Respiratory: Lungs Clear, Normal Breath Sounds, No Accessory Muscle Use, No Respiratory Distress Cardiovascular: Regular Rate, Rhythm Capillary Refill: Less Than 3 Seconds Extremity: Normal Inspection, Normal Range of Motion Neurologic/Psychiatric: Alert, Oriented x3, No Motor/Sensory Deficits, Normal Mood/Affect, registered nurse maternal child II-XII Norm as Tested Skin: Normal Color, Warm/Dry Results Lab Laboratory Tests 07/17/23 16:34 07/17/23 20:04 07/18/23 03:50 Assessment/Plan Assessment/Plan 1 ALCIRA CARLISLE MD Jul 18, 2023 09:09
[2023-07-18 12:23] LABS: POTASSIUM 4.4 MMOL/L (3.6-5.0)
[2023-07-18 12:24] LABS: CALCIUM 8.6 MG/DL (8.5-10.1)
[2023-07-18 12:28] LABS: CREATININE SERUM 0.68 MG/DL (0.60-1.30)
[2023-07-18] MEDS: hydrALAZINE INJECTION 20 MG/ML VIAL IV PRN ×2 (12:57→18:13)
[2023-07-18] MEDS: PANCRELIPASE 5,000 UNITS CAPSULE PO SCH ×2 (12:57→18:13)
[2023-07-18] MEDS ORDERED: D5W 1,000 ML IV SOLUTION 1,000 ML IV SCH (13:00)
--- NOTE | 2023-07-18 17:41 | History & Physical-Hospitalist ---
History of Present Illness HPI/Chief Complaint Rita Moulton is a 73 year old female with PMH HTN, CAD, hypothyroidism, hyponatremia, who presented after being told she had abnormal labs. She had been feeling dizzy occasionally. She denies headache. She denies chest pain. She denies shortness of breath. She denies abdominal pain. She takes sodium tablets with each meal three times daily. She feels like she is in her normal state of health. Source: patient Exam Limitations: no limitations Date Seen 07/18/23 Time Seen by a Provider: 11:15 Attending Physician Karson Oneill MD PCP Admitting Physician: Oscar Reeder MD Attending Physician: Oscar Reeder MD Referring Physician Date of Admission Jul 17, 2023 at 18:54 Home Medications & Allergies Home Medications Reviewed patient Home Medication Reconciliation performed by pharmacy medication reconciliations mental health technician and/or nursing. Patients Allergies have been reviewed. Allergies Allergies Coded Allergies clopidogrel (Verified Allergy, Severe, 09/06/21) DID NOT WORK, STENT SHUT DOWN nefazodone (Verified Allergy, Intermediate, 09/06/21) LOWERS SODIUM LEVEL trazodone (Verified Allergy, Intermediate, 09/06/21) LOWERS SODIUM codeine (Unverified Allergy, Unknown, 08/02/21) erythromycin base (Unverified Allergy, Unknown, 08/02/21) lisinopril (Unverified Allergy, Unknown, 08/02/21) Past Dvlqwxn-Plbsci-Bhdiln Hx Patient Social History Tobacco Use?: No Substance use?: No Alcohol Use?: No Pt feels they are or have been: No Immunizations Up To Date Date of Influenza Vaccine: Jun 27, 2021 Current Status status: No status: No Communicates: Verbally Primary Language: Hungarian Preferred Spoken Language: Hungarian Is interpretation needed?: No Sensory deficits: Vision impairment Implanted or Applied Medical D: Stents Past Medical History Surgeries: Abdominal, Coronary Stent, Gallbladder, Hysterectomy Coronary Artery Disease, Hypertension Colitis, Polyps Family Medical History No Pertinent Family Hx Review of Systems Constitutional: dizziness Respiratory: no symptoms reported Cardiovascular: no symptoms reported Gastrointestinal: no symptoms reported Physical Exam Physical Exam Vital Signs Vital Signs - First Documented 07/17/23 16:24 Temp 36.6 Pulse 61 Resp 18 B/P (MAP) 198/81 (120) Pulse Ox 98 O2 Delivery Room Air Capillary Refill : Less Than 3 Seconds Height, Weight, BMI Height: '" Weight: lbs. oz. kg; 24.08 BMI Method: General Appearance: No Apparent Distress, WD/WN HEENT: PERRL/EOMI, Pharynx Normal Neck: Normal Inspection, Supple Respiratory: Lungs Clear, Normal Breath Sounds, No Respiratory Distress Cardiovascular: Regular Rate, Rhythm, No Edema, No Murmur Gastrointestinal: Normal Bowel Sounds, Non Tender, Soft Extremity: Normal Inspection, No Pedal Edema Neurologic/Psychiatric: Alert, Normal Mood/Affect Skin: Normal Color, Warm/Dry Results Results/Procedures Labs Laboratory Tests 07/17/23 16:34 07/17/23 20:04 07/18/23 03:50 07/18/23 11:56 07/18/23 16:58 Patient resulted labs reviewed. Imaging: Reviewed Imaging Report Assessment/Plan Admission Diagnosis Hyponatremia Admission Status: Inpatient Order (span 2 midnights) Reason for Inpatient Admission: electrolyte abnormality Assessment and Plan Hyponatremia Acute on chronic Na 116 on arrival Started on normal saline Increased overnight to 125 this morning, fluids stopped Increased to 127 Started on D5W, decreased to 126 Stop IV fluids Resume home sodium tablets Hypomagnesemia Monitor and replace as needed HTN Hypothyroidism CAD Continue home meds as able Critical Care Critically Ill Patient Diagnosis/Problems Diagnosis/Problems (1) Hyponatremia Status: Acute (2) Hypomagnesemia Status: Acute (3) HTN (hypertension) Status: Acute (4) CAD (coronary artery disease) Status: Chronic (5) Hypothyroidism Status: Chronic OSCAR REEDER MD Jul 18, 2023 17:41
[2023-07-18] MEDS ORDERED: amLODIPine 10 MG TABLET PO ONE (17:45)
[2023-07-18] MEDS: ENOXAPARIN 40 MG/0.4 ML SYRINGE SC SCH (18:13)
[2023-07-18] MEDS ORDERED: amLODIPine 10 MG TABLET ONE (21:37)
[2023-07-18] MEDS: SODIUM CHLORIDE 1 GM TABLET PO SCH (22:19)
[2023-07-18] MEDS: DICYCLOMINE 10 MG CAPSULE PO SCH (22:20)
[2023-07-18 23:32] VITALS: BP 149/69
[2023-07-18 23:59] VITALS: BP 133/60
[2023-07-19] VITALS (8 sets, daily range): BP systolic 137–164; BP diastolic 62–81
[2023-07-19 05:31] LABS: BASOPHILS % (AUTO) 1 % (0-10); EOSINOPHILS # (AUTO) 0.1 10^3/uL (0.0-0.3); EOSINOPHILS % (AUTO) 1 % (0-10); HEMATOCRIT 36 % (35-52); HEMOGLOBIN 12.7 g/dL (11.5-16.0); LYMPHOCYTES # (AUTO) 2.4 10^3/uL (1.0-4.0); LYMPHOCYTES % (AUTO) 37 % (12-44); MEAN CORPUSCULAR HEMOGLOBIN 30 pg (25-34); MEAN CORPUSCULAR HGB CONC 35 g/dL (32-36); MEAN CORPUSCULAR VOLUME 87 fL (80-99); MONOCYTES # (AUTO) 0.6 10^3/uL (0.0-1.0); MONOCYTES % (AUTO) 9 % (0-12); NEUTROPHILS # (AUTO) 3.4 10^3/uL (1.8-7.8); NEUTROPHILS % (AUTO) 52 % (42-75); PLATELET COUNT 201 10^3/uL (130-400); WHITE BLOOD COUNT 6.5 10^3/uL (4.3-11.0)
[2023-07-19 05:43] LABS: CALCIUM 8.1 MG/DL (8.5-10.1); CREATININE SERUM 0.65 MG/DL (0.60-1.30); MAGNESIUM 1.9 MG/DL (1.6-2.4)
[2023-07-19] MEDS: POTASSIUM CL 10MEQ/50ML IVPB 50 ML IV SCH (05:44)
[2023-07-19] MEDS: POTASSIUM CHLORIDE 20 MEQ TABLET PO SCH (05:45)
[2023-07-19] MEDS: MAGNESIUM 1 GM/100 ML IVPB 100 ML IV SCH ×3 (05:46→06:16)
[2023-07-19] MEDS: LEVOTHYROXINE 100 MCG TABLET PO SCH (06:13)
[2023-07-19] MEDS ORDERED: LEVOTHYROXINE 25 MCG TABLET PO SCH (06:30)
[2023-07-19] MEDS: SODIUM CHLORIDE 1 GM TABLET PO SCH ×3 (08:07→17:51)
[2023-07-19] MEDS: PANCRELIPASE 5,000 UNITS CAPSULE PO SCH ×3 (08:08→17:51)
[2023-07-19] MEDS: amLODIPine 10 MG TABLET PO SCH (08:08)
[2023-07-19] MEDS: PANTOPRAZOLE 20 MG TABLET PO SCH (08:09)
[2023-07-19] MEDS: LOSARTAN 100 MG TABLET PO SCH (08:09)
--- NOTE | 2023-07-19 08:34 | Physical Therapy Evaluation ---
PT Evaluation-General Medical Diagnosis Admission Date Jul 17, 2023 at 18:54 Medical Diagnosis: Abnormal labs, dizziness Onset Date: Jul 18, 2023 Therapy Diagnosis Therapy Diagnosis: Gait deficit Precautions Precautions/Isolations: Fall Prevention, Standard Precautions Weight Bear Status Right Lower Extremity: Right Full Weight Bearing Left Lower Extremity: Left Full Weight Bearing Referral Physician: Dr. Espinoza Reason for Referral: Evaluation/Treatment Medical History Reviewed History: Yes Social History Home: Single Level Current Living Status: Children Entry Into Home: Ramp Prior Prior Level of Function SCALE: Activities may be completed with or without assistive devices. 5-Pidawowtjj-zcbetbd completes the activity by him/herself with no assistance from a helper. 5-Set-up or Clean-up Assistance-helper sets up or cleans up; patient completes activity. [place] assists only prior to or following the activity. 4-Supervision or Touching Assistance-helper provides verbal cues and/or touching/steadying and/or contact guard assistance as patient completes activity. Assistance may be provided throughout the activity or intermittently. 3-Partial/Moderate Assistance-helper does LESS THAN HALF the effort. [place] lif ts, holds or supports trunk or limbs, but provides less than half the effort. 2-Substantial/Maximal Assistance-helper does MORE THAN HALF the effort. [place] lifts or holds trunk or limbs and provides more than half the effort. 4-Bwcezlnte-aqwgyb does ALL the effort. Patient does none of the effort to complete the activity. Or, the assistance of 2 or more helpers is required for the patient to complete the activity. If activity was not attempted, code reason: 7-Patient Refused. 9-Not Applicable-not attempted and the patient did not perform the activity before the current illness, exacerbation or injury. 10-Not Attempted due to Environmental Limitations-(lack of equipment, weather restraints, etc.). 88-Not Attempted due to Medical Conditions or Safety Concerns. Bed Mobility: 6 Transfers (B,C,W/C): 6 Gait: 6 Stairs: 6 Indoor Mobility (Ambulation): Independent Stairs: Not Applicalbe Prior Devices Use: None PT Evaluation-Current Subjective Patient lying supine in bed upon PT arrival, agreeable to treatment. Patient rates pain at 0/10 currently. Objective Patient Orientation: Person, Place, Time, Situation ROM/Strength ROM Lower Extremities WFLs BLEs all planes Strength Lower Extremities 5/5 BLEs all planes Sensory Vision: Functional Hearing: Hearing Aid/Aides Sensation Right Lower Extremit: Intact Sensation Left Lower Extremity: Intact Transfers Roll Left to Right (QC): 6 Sit to Lying (QC): 6 Lying to Sitting/Side of Bed(Q: 6 Sit to Stand (QC): 6 Chair/Vhn-bj-Kioye Xfer(QC): 6 Toilet Transfer (QC): 6 Gait Does the Patient Walk?: Yes Mode of Locomotion: Walk Anticipated Mode of Locomotion: Walk Walk 10 feet (QC): 6 Walk 50 ft with 2 Turns(QC): 6 Walk 150 ft (QC): 6 Distance: 400' Gait Assistive Device: None Balance Sitting Static: Normal Sitting Dynamic: Normal Standing Static: Normal Standing Dynamic: Normal Assessment/Needs Patient at [facility]. No further PT needed at this time. Rehab Potential: Good PT Plan Treatment/Plan Treatment Plan: Discontinue PT Treatment Duration: Jul 20, 2023 Frequency: Safety Risks/Education Patient Education: Gait Training Teaching Recipient: Patient Teaching Methods: Demonstration, Discussion Response to Teaching: Verbalize Understanding, Return Demonstration Time Time In: 810 Time Out: 825 DATE: Jul 19, 2023 Total Billed Treatment Time: 15 Total Billed Treatment Visit, DILLAN FREGOSO PT Jul 19, 2023 08:34
[2023-07-19] MEDS: DICYCLOMINE 10 MG CAPSULE PO SCH ×4 (08:40→19:43)
[2023-07-19] MEDS: DOCUSATE SODIUM 100 MG CAPSULE PO SCH ×2 (08:56→19:31)
[2023-07-19] MEDS: SENNOSIDES 8.6 MG TABLET PO SCH ×2 (08:56→19:32)
[2023-07-19] MEDS ORDERED: TORSEMIDE 10 MG (DEMADEX) TABLET PO ONE (09:00)
[2023-07-19] MEDS ORDERED: LIPA1CAP67 PO (11:12)
[2023-07-19] MEDS ORDERED: CHOL500050 PO (11:12)
[2023-07-19] MEDS ORDERED: LOSA100T58 PO (11:12)
[2023-07-19] MEDS ORDERED: POTA-169 PO (11:12)
[2023-07-19] MEDS ORDERED: BUDE9TAB2 PO (11:12)
[2023-07-19] MEDS ORDERED: HC A30CR5 VG (11:12)
--- NOTE | 2023-07-19 12:05 | Diagnostic Imaging Report ---
PROCEDURE: CT head without contrast. TECHNIQUE: Multiple contiguous axial images were obtained through the brain without the use of intravenous contrast. Auto Exposure Controls were utilized during the CT exam to meet ALARA standards for radiation dose reduction. INDICATION: Syndrome of inappropriate ADH. Hyponatremia. COMPARISON: None available. FINDINGS: No intracranial hyperdense hemorrhage or space-occupying mass. No hydrocephalus or midline shift. Ortiz-white matter differentiation is well preserved. No vasogenic edema is noted. Basilar cisterns are patent. No sagging of brainstem or cerebellar tonsillar ectopia. Paranasal sinuses and mastoid air cells are clear. Bilateral lens surgeries noted. IMPRESSION: 1. There are no CT features to indicate intracranial mass. Dictated by: Dictated on workstation # [id number]
[2023-07-19] MEDS: hydrALAZINE INJECTION 20 MG/ML VIAL IV PRN ×2 (14:18→19:43)
--- NOTE | 2023-07-19 15:12 | Progress Note - Hospitalist ---
Subjective HPI/CC On Admission Date Seen by Provider: Jul 19, 2023 Time Seen by Provider: 10:20 Rita Moulton is a 73 year old female with PMH HTN, CAD, hypothyroidism, hyponatremia, who presented after being told she had abnormal labs. She had been feeling dizzy occasionally. She denies headache. She denies chest pain. She denies shortness of breath. She denies abdominal pain. She takes sodium tablets with each meal three times daily. She feels like she is in her normal state of health. Subjective/Events-last exam She is feeling ok. She has no complaints. Objective Exam Vital Signs Vital Signs Date Time Temp Pulse Resp B/P (MAP) Pulse Ox O2 Delivery O2 Flow Rate FiO2 07/19/23 14:53 141/73 (95) 07/19/23 14:11 36.8 65 18 96 Room Air Capillary Refill : Less Than 3 Seconds General Appearance: No Apparent Distress, WD/WN Respiratory: Lungs Clear, No Respiratory Distress Cardiovascular: Regular Rate, Rhythm, No Murmur Gastrointestinal: Normal Bowel Sounds, Soft Extremity: Normal Inspection, No Pedal Edema Neurologic/Psychiatric: Alert, Normal Mood/Affect Skin: Normal Color, Warm/Dry Results/Procedures Lab Laboratory Tests 07/18/23 16:58 07/19/23 04:40 Patient resulted labs reviewed. 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
[2023-07-19] MEDS: ENOXAPARIN 40 MG/0.4 ML SYRINGE SC SCH (18:13)
[2023-07-20 03:36] VITALS: BP 144/63
[2023-07-20] MEDS: DICYCLOMINE 10 MG CAPSULE PO SCH ×2 (06:22→11:10)
[2023-07-20] MEDS: LEVOTHYROXINE 100 MCG TABLET PO SCH (06:23)
[2023-07-20] MEDS ORDERED: POTASSIUM CHLORIDE 20 MEQ TABLET PO SCH (07:00)
[2023-07-20 07:01] LABS: CALCIUM 8.8 MG/DL (8.5-10.1); CREATININE SERUM 0.67 MG/DL (0.60-1.30); MAGNESIUM 1.7 MG/DL (1.6-2.4); POTASSIUM 4.1 MMOL/L (3.6-5.0)
[2023-07-20] MEDS: POTASSIUM CL 10MEQ/50ML IVPB 50 ML IV SCH (07:08)
[2023-07-20] MEDS: POTASSIUM CHLORIDE 20 MEQ TABLET PO SCH (07:08)
[2023-07-20] MEDS: MAGNESIUM 1 GM/100 ML IVPB 100 ML IV SCH ×4 (07:08→08:43)
[2023-07-20] MEDS: PANCRELIPASE 5,000 UNITS CAPSULE PO SCH ×2 (07:31→12:35)
[2023-07-20 07:41] VITALS: BP 148/76
[2023-07-20] MEDS: SODIUM CHLORIDE 1 GM TABLET PO SCH ×2 (08:33→12:35)
[2023-07-20] MEDS: amLODIPine 10 MG TABLET PO SCH (08:35)
[2023-07-20] MEDS: LOSARTAN 100 MG TABLET PO SCH (08:35)
[2023-07-20] MEDS: PANTOPRAZOLE 20 MG TABLET PO SCH (08:35)
[2023-07-20] MEDS: SENNOSIDES 8.6 MG TABLET PO SCH (08:42)
[2023-07-20] MEDS: DOCUSATE SODIUM 100 MG CAPSULE PO SCH (08:42)
[2023-07-20] MEDS ORDERED: TORS10TA5 PO (11:28)
[2023-07-20] MEDS ORDERED: NF-NACL1GT PO (11:28)
[2023-07-20 11:43] VITALS: BP 138/86
[2023-07-20 11:55] VITALS: BP 138/86
--- NOTE | 2023-07-20 19:28 | Discharge Summary ---
Discharge Summary Hospital Course Problems/Dx: (1) Hyponatremia Status: Acute (2) Hypomagnesemia Status: Acute (3) HTN (hypertension) Status: Acute (4) CAD (coronary artery disease) Status: Chronic (5) Hypothyroidism Status: Chronic Hospital Course Date of Admission: Jul 17, 2023 at 18:54 Admission Diagnosis : Hyponatremia Family Physician/Provider: Dillan Carpenter MD Date of Discharge: 07/20/23 Discharge Diagnosis: Hyponatremia Hospital Course: Rita Moulton is a 73 year old female who was admitted with hyponatremia. She reported having no symptoms but was found to have abnormal labs. In retrospect, she was having some dizziness and confusion. She has been taking sodium tablets three times daily as an outpatient. She was given normal saline and her sodium levels increased. She was restarted on her salt tabs but her sodium levels began to drop again. Her sodium tablets were increased to two tablets three times daily. She was also given Torsemide. Her sodium levels increased. She was discharged with a five day supply of Torsemide. Her magnesium levels were also low and were replaced. She was continued on her magnesium supplement. She should follow up with Dr. Carpenter on Saturday. She will need follow up labs. She was discharged home in stable condition. Labs and Pending Lab Test: Laboratory Tests 07/19/23 19:25: Free Thyroxine 1.01 07/20/23 06:34: Sodium Level 127L, Potassium Level 4.1, Chloride Level 94L, Carbon Dioxide Level 23, Anion Gap 10, Blood Urea Nitrogen 10, Creatinine 0.67, Estimat Glomerular Filtration Rate 93, BUN/Creatinine Ratio 15, Glucose Level 106H, Calcium Level 8.8, Magnesium Level 1.7 Microbiology 07/18/23 MRSA Screen - Final, Complete MRSA not isolated 07/17/23 Urine Culture - Final, Complete Lactobacillus species YEAST Home Meds Active Torsemide 10 Mg Tablet 10 Mg PO DAILY 5 Days Sodium Chloride 1,000 Mg Tablet.ameena 2 Gm PO TIDWM 30 Days Reported Klor-Con M20 (Potassium Chloride) 20 Meq Tab.er.prt 20 Meq PO DAILY Hydrocort-Pramoxine 2.5-1% Crm (Hydrocortisone/Pramoxine) 2.5 %-1 % Cream.appl 1 Applic VG BID Budesonide ER (Budesonide) 9 Mg Tabdr...er 9 Mg PO DAILY Creon 36,000 Units Capsule (Lipase/Protease/Amylase) 36K-114K Capsule. 3 Ea PO TIDWM Losartan Potassium 100 Mg Tablet 100 Mg PO DAILY Vitamin D3 (Cholecalciferol (Vitamin D3)) 125 Mcg (5000 Unit) Capsule 250 Mcg PO DAILY Nitroglycerin 0.4 Mg Tab.subl 0.4 Mg SL PRN Amitriptyline HCl 10 Mg Tablet 10 Mg PO HS Carvedilol 6.25 Mg Tablet 6.25 Mg PO BID Hydralazine HCl 25 Mg Tablet 25 Mg PO TIDWM Phazyme (Simethicone) 180 Mg Capsule 180 Mg PO TIDWM Dicyclomine HCl 10 Mg Capsule 10 Mg PO QIDACHS Omeprazole 20 Mg Capsule. 20 Mg PO DAILY Loperamide (Loperamide HCl) 2 Mg Tablet 4 Mg PO TIDWM TAKES 2 (2MG) TABLETS Levothyroxine Sodium 200 Mcg Tablet 200 Mcg PO DAILY Centrum Silver Tablet (Multivit-Min/FA/Lycopene/Lut) 0.4 Mg-300 Mcg-250 Mcg Tablet 1 Each PO DAILY Calcium Carbonate 600 Mg Tablet 600 Mg PO BID Aspirin EC (Aspirin) 81 Mg Tablet. 81 Mg PO HS Amlodipine Besylate 10 Mg Tablet 10 Mg PO DAILY Assessment/Pt Instructions see instructions Discharge Planning: >30 minutes discharge planning Discharge Instructions Discharge Diet: No Restrictions Activity as Tolerated: Yes Discharge Physical Examination Vital Signs Vital Signs Date Time Temp Pulse Resp B/P (MAP) Pulse Ox O2 Delivery O2 Flow Rate FiO2 07/20/23 11:55 36.9 76 16 138/86 97 Room Air General Appearance: No Apparent Distress, WD/WN Respiratory: Lungs Clear, No Respiratory Distress Cardiovascular: Regular Rate, Rhythm, No Murmur Gastrointestinal: Normal Bowel Sounds, Soft Extremity: Normal Inspection, No Pedal Edema Neurologic/Psychiatric: Alert, Normal Mood/Affect Allergies: Coded Allergies: clopidogrel (Verified Allergy, Severe, 09/06/21) DID NOT WORK, STENT SHUT DOWN nefazodone (Verified Allergy, Intermediate, 09/06/21) LOWERS SODIUM LEVEL trazodone (Verified Allergy, Intermediate, 09/06/21) LOWERS SODIUM codeine (Unverified Allergy, Unknown, 08/02/21) erythromycin base (Unverified Allergy, Unknown, 08/02/21) lisinopril (Unverified Allergy, Unknown, 08/02/21) Copy Copies To 1: DILLAN CARPENTER MD Discharge Summary Date of Admission Jul 17, 2023 at 18:54 Date of Discharge Jul 20, 2023 at 12:45 Discharge Date: Jul 20, 2023 Discharge Time: 12:45 Admission Diagnosis Hyponatremia Discharge Diagnosis Hyponatremia SIADH Hypomagnesemia HTN Hypothyroidism CAD (1) Hyponatremia Status: Acute (2) Hypomagnesemia Status: Acute (3) HTN (hypertension) Status: Acute (4) CAD (coronary artery disease) Status: Chronic (5) Hypothyroidism Status: Chronic OSCAR REEDER MD Jul 20, 2023 19:27
== END 2023-07-20 12:45 | disposition home or self-care (01) | DRG 645 ==
LOC: EDUNIT# 16:09 → ER 16:11 → ICU 18:54 → CSD 07-18 18:30 → 4TH 07-19 14:00
PROVIDERS: ADMIT Internal Medicine; ATTEND Internal Medicine
DX: E22.2 Syndrome of inappropriate secretion of antidiuretic hormone (principal); E83.42 Hypomagnesemia; I10 Essential (primary) hypertension; I25.10 Atherosclerotic heart disease of native coronary artery without angina pectoris; E03.9 Hypothyroidism, unspecified; Z79.82 Long term (current) use of aspirin; Z79.899 Other long term (current) drug therapy; Z11.52 Encounter for screening for COVID-19
CPT/HCPCS: 36415; 70450; 71045; 80048; 80053; 81000; 83735; 83930; 83935; 84295; 84439; 84443; 84478; 85025; 87081; 87088; 87636; 90662